=== PATIENT | male | born 1955 | race Caucasian/White ===

== ENCOUNTER 2019-07-11 02:14 | Emergency (ER) | payer OTHER ==
[~2019-07-11] VITALS: Ht 177.8 cm; Wt 88.5 kg
[~2019-07-11 02:14] MED LIST: BACITRACIN 500U30 GM T; PENICILLIN VK500 MG PO
[2019-07-11] MEDS ORDERED: KEFLEX500 M1 PO (03:04)
[2019-07-11] MEDS ORDERED: PREDNISONE20 M1 PO (03:04)
== END 2019-07-11 03:22 | disposition home or self-care (01) ==
LOC: ED 02:14
DX: S61.234A Puncture wound without foreign body of right ring finger without damage to nail, initial encounter (principal); L03.113 Cellulitis of right upper limb; K02.9 Dental caries, unspecified; W57.XXXA Bitten or stung by nonvenomous insect and other nonvenomous arthropods, initial encounter; Y93.89 Activity, other specified; Y92.89 Other specified places as the place of occurrence of the external cause; Y99.8 Other external cause status

== ENCOUNTER 2020-04-14 15:52 | Emergency (ER) | payer OTHER ==
[~2020-04-14] VITALS: Wt 87.1 kg
[~2020-04-14 15:52] MED LIST changes: +KEFLEX500 M1 PO; +PREDNISONE20 M1 PO
[2020-04-14] MEDS ORDERED: SEPTDS PO (16:20)
== END 2020-04-14 16:23 | disposition home or self-care (01) ==
LOC: ED 15:52
DX: L02.412 Cutaneous abscess of left axilla (principal)

== ENCOUNTER 2021-08-18 07:45 | Emergency (ER) | payer OTHER ==
[~2021-08-18] VITALS: Ht 180.3 cm; Wt 89.8 kg
[~2021-08-18 07:45] MED LIST changes: +SEPTDS PO
[2021-08-18] MEDS ORDERED: VOLTAREN ARTHRI20 GM T (08:57)
== END 2021-08-18 09:13 | disposition home or self-care (01) ==
LOC: ED 07:45
DX: M25.562 Pain in left knee (principal); X58.XXXA Exposure to other specified factors, initial encounter; Y93.89 Activity, other specified; Y92.89 Other specified places as the place of occurrence of the external cause; Y99.8 Other external cause status

== ENCOUNTER 2021-11-12 15:43 | Emergency (ER) | payer OTHER ==
[~2021-11-12] VITALS: Wt 87.1 kg
[~2021-11-12 15:43] MED LIST changes: +VOLTAREN ARTHRI20 GM T
== END 2021-11-12 19:31 | disposition left against medical advice (07) ==
LOC: ED 15:43
DX: M25.562 Pain in left knee (principal); X50.1XXA Overexertion from prolonged static or awkward postures, initial encounter; Y93.89 Activity, other specified; Y92.89 Other specified places as the place of occurrence of the external cause; Y99.9 Unspecified external cause status